=== PATIENT | male | born 1950 | race Caucasian/White ===

== ENCOUNTER 2021-08-09 08:19 | Outpatient (CLI) | payer MEDICARE, OTHER | END 2021-08-09 08:20 | disposition home or self-care (01) | LOC: CSHWCC 08:19 | PROVIDERS: ATTEND Nurse Practitioner Family | DX: S51.802D Unspecified open wound of left forearm, subsequent encounter (principal) | CPT/HCPCS: 97139; G0463; 99204 ==

== ENCOUNTER 2021-08-16 10:46 | Outpatient (CLI) | payer MEDICARE | END 2021-08-16 10:47 | disposition home or self-care (01) | LOC: CSHWCC 10:46 | PROVIDERS: ATTEND Nurse Practitioner Family | DX: S51.802D Unspecified open wound of left forearm, subsequent encounter (principal) | CPT/HCPCS: 97139; G0463; 99213 ==

== ENCOUNTER 2021-08-23 11:11 | Outpatient (CLI) | payer MEDICARE | END 2021-08-23 11:12 | disposition home or self-care (01) | LOC: CSHWCC 11:11 | PROVIDERS: ATTEND Nurse Practitioner Family | DX: S51.802D Unspecified open wound of left forearm, subsequent encounter (principal) | CPT/HCPCS: 97139; G0463; 99213 ==

== ENCOUNTER 2021-09-06 10:57 | Outpatient (CLI) | payer MEDICARE | END 2021-09-06 10:58 | disposition home or self-care (01) | LOC: CSHWCC 10:57 | PROVIDERS: ATTEND Nurse Practitioner Family | DX: S51.802D Unspecified open wound of left forearm, subsequent encounter (principal) | CPT/HCPCS: 97139; G0463; 99213 ==